=== PATIENT | female | born 1980 | race African-American/Black ===

== ENCOUNTER 2018-05-12 13:47 | Inpatient (IN) | payer BC ==
[2018-05-12 14:36] VITALS: BMI 42.7
[2018-05-12 15:09] LABS: BASO % 0.1 % (0-2.0); HEMATOCRIT 35.9 % (32.4-45.2); HEMOGLOBIN 12.4 GM/dL (10.7-15.3); LYMPH % 8.6 % (8-40); MCHC 34.6 g/dl (32.0-36.0); MEAN CELL VOLUME 95.6 fl (80-96); MONO % 9.1 % (3.8-10.2); NEUT % 82.2 % (42.8-82.8); PLATELET COUNT 149 K/MM3 (134-434); RBC 3.75 M/mm3 (3.60-5.2); RDW 12.6 % (11.6-15.6); WHITE BLOOD COUNT 11.7 K/mm3 (4.0-10.0)
[2018-05-12] MEDS ORDERED: DEXTROSE 5%-LACTATED RINGERS 1,000 ML IV SCH ×2 (15:15→21:00)
[2018-05-12 15:34] LABS: ANION GAP 11 MMOL/L (8-16); BLOOD UREA NITROGEN 11 mg/dL (7-18); CALCIUM 8.7 mg/dL (8.5-10.1); CHLORIDE 101 mmol/L (98-107); CO2 21 mmol/L (21-32); CREATININE 0.8 mg/dL (0.55-1.3); GLUCOSE,RANDOM 102 mg/dL (74-106); SODIUM 133 mmol/L (136-145)
[2018-05-12 15:39] LABS: INR 0.99 (0.83-1.09); PROTHROMBIN TIME (PATIENT) 11.7 SEC (9.7-13.0); RPR NONREACTIVE (NONREACTIVE)
[2018-05-12] MEDS ORDERED: FENTANYL/BUPIVACAINE/NS/PF - PCEA - 50 ML DISP.SYRIN EP ONE (16:01)
--- NOTE | 2018-05-12 16:15 | HP ---
Past Medical History - Primary Care Physician PCP:: Kalpana Beasley - Admission Chief Complaint: 37yo P0 @39.6 wks. with contructions, no LOF, no VB, + FM History of Present Illness: 1. h/o Gastric sleeve with 40lb weight loss 2. Spontaneous 3. GBS neg no need for prophylaxis 4. Obese GCT is normal 5. 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 Weeks Gestation by Dates: 39.6 ...EDC by Dates: 05/13/18 Additional Medical History: Anovulation, PCOS, Obesity. Denied h/o STDs - Past Surgical History Hx Myomectomy: No Hx Transabdominal Cerclage: No Additional Surgical History: 2017 Gastric sleeve - Smoking History Smoking history: Smoker current status UNK Have you smoked in the past 12 months: No - Alcohol/Substance Use Hx Alcohol Use: No History of Substance Use: reports: None - Social History Usual Living Arrangement: Yes: With Spouse Home Medications - Allergies Allergies/Adverse Reactions: Allergies Allergy/AdvReac Type Severity Reaction Status Date / Time No Known Allergies Allergy Verified 05/12/18 14:41 - Home Medications Home Medications: Ambulatory Orders Ferrous Sulfate [Feosol] 325 mg PO BID 05/11/18 Pnv No.95/Ferrous Fum/Folic AC [ Vitamin Tablet] 1 each PO DAILY Family Disease History - Family Disease History Family History: Denies Review of Systems - Review of Systems Constitutional: reports: No Symptoms Eyes: reports: No Symptoms HENT: reports: No Symptoms Neck: reports: No Symptoms Cardiovascular: reports: No Symptoms Respiratory: reports: No Symptoms Gastrointestinal: reports: No Symptoms Genitourinary: reports: No Symptoms Breasts: reports: No Symptoms Reported Musculoskeletal: reports: No Symptoms Integumentary: reports: No Symptoms Neurological: reports: No Symptoms Endocrine: reports: No Symptoms Hematology/Lymphatic: reports: No Symptoms Psychiatric: reports: No Symptoms Physical Exam - Maternity Vital Signs: Vital Signs Temperature 97.8 F 05/12/18 13:47 Pulse Rate 74 05/12/18 13:47 Respiratory Rate 20 05/12/18 13:47 Blood Pressure 129/78 05/12/18 13:47 O2 Sat by Pulse Oximetry (%) Constitutional: Yes: Well Nourished, No Distress, Calm Eyes: Yes: WNL, Occular Prosthesis Neck: Yes: WNL, Supple, Trachea Midline Cardiovascular: Yes: WNL, Regular Rate and Rhythm Lungs: Clear to auscultation Breast(s): Yes: WNL - Abdominal Exam/OB Fundal Height: 40 (EFW 8lb) Number of Fetuses: Single Presentation: Vertex Contractions: Yes Regularity: Regular Intensity: Moderate Monitor Mode: External Heart Rate (range): 145 Heart Rate Location: Midline Category: I Accelerations: Uniform Decelerations: Variable (ocassional, exellent verriability) - Vaginal Exam/OB Vaginal Bleediing: No Speculum Exam: No Dilatation (cm): 7-8cm Effacement (%): 90 Amniotic Membrane Status: Intact Presentation: Vertex/Position Station: 0 - Physical Exam Musculoskeletal: Yes: WNL Extremities: Yes: WNL Edema: No Integumentary: Yes: WNL Deep Tendon Reflex Grade: Normal +2 ...Motor Strength: WNL Psychiatric: Yes: WNL, Alert, Oriented - Labs Lab Results: Apos/RI/NR/HBsAg neg/HIV neg/GCT 90 CBC, BMP 05/12/18 14:40 05/12/18 14:40 Assessment/Plan 37yo P0 @ 39.6wks in active labor Admit to L&D NPO, Admit labs well being is reassuring occasional mild variables with excellent variability in between Patient agreed to an epidural anesthesia will AROM once comfortable for further assessment of well being LGA, but gynecoyd pelvis and excellent progress of labor
[2018-05-12] MEDS ORDERED: ELECTROLYTE-148 SOLN 1,000 ML IV SCH (16:30)
[2018-05-12] MEDS ORDERED: ELECTROLYTE-148 SOLN 1,000 ML IV ONE (16:30)
--- NOTE | 2018-05-12 17:26 | PN ---
Progress Note, Labor Vaginal Exam #1 Labor Exam Date: 05/12/18 Labor Exam Time: 17:15 Heart Rate (range): 150,s exellent varriability, occasional varriable Dilatation: 8-9cm Effacement (%): 90 Amniotic Membrane Status: Bulging (AROM - thick particulate meconium) Presentation: Vertex/Position Station: 0 Remarks: Category 2 FHR with reassuring features Mother comfortable after epidural NICU attending presence @ delivery requested continue monitoring progress of labor
[2018-05-12] MEDS ORDERED: NALOXONE HCL 0.4 MG/ML VIAL IVPUSH PRN (17:28)
[2018-05-12] MEDS ORDERED: FENTANYL/BUPIVACAINE/NS/PF - PCEA - 50 ML DISP.SYRIN EP SCH (17:30)
[2018-05-12] MEDS ORDERED: OXYTOCIN 30 UNITS in 0.9% NS 30 UNIT/500 ML INFUS.BAG IVPB ONE (18:03)
[2018-05-12] MEDS ORDERED: OXYTOCIN 30 UNITS in 0.9% NS 30 UNIT/500 ML INFUS.BAG IVPB SCH (18:15)
--- NOTE | 2018-05-12 18:58 | PN ---
Progress Note, Labor Vaginal Exam #2 Labor Exam Date: 05/12/18 Labor Exam Time: 18:40 Heart Rate (range): 160" Recurrent varriables on/off good varriability Dilatation: 5-6cm Effacement (%): 80% Amniotic Membrane Status: Ruptured Presentation: Vertex/Position Station: 0 Remarks: Cervix swallen Category 2 FHR Likely CPD with not favorable FHR - EFW 8lb and thick particulate meconium Anesthesia, Neonatology and medical record assistant informed Pitocin off O2 by face mask LL decubitous position Patient consented to Primary c/section all questions answered
[2018-05-12] MEDS ORDERED: OXYTOCIN 10 UNITS/ML VIAL ONE ×2 (19:44→20:42)
[2018-05-12] MEDS: OXYTOCIN 20 UNITS in 0.9% NS 20 UNIT/1,000 ML INFUS.BAG IV SCH (19:45)
[2018-05-12] MEDS ORDERED: KETOROLAC TROMETHAMINE 30 MG/1 ML VIAL ONE (19:50)
[2018-05-12 20:19] LABS: ARTERIAL BLOOD GAS BASE EXCESS -2.5 meq/l (-2-2); ARTERIAL BLOOD GAS PCO2 44.4 mmHg (35-45); ARTERIAL BLOOD GAS pH 7.33 (7.35-7.45)
[2018-05-12 20:22] LABS: VENOUS PC02 42.4 mmHg (38-52); VENOUS PH 7.35 (7.32-7.42); VENOUS PO2 31.9 mmHg (28-48)
[2018-05-12 20:26] LABS: ALLENS TEST POSITIVE
[2018-05-12 20:30] LABS: ARTERIAL BLD GAS O2 SATURATION 38.6 % (90-98.9); ARTERIAL BLOOD GAS PO2 20.7 mmHg (80-100)
--- NOTE | 2018-05-12 20:48 | OP ---
Operative Note - Note: Operative Date: 05/12/18 Pre-Operative Diagnosis: 37yo P 0 @ 39.6weeks with CPD, Category 2 FHR remote from delivery, thick, particulate meconium Operation: Primary c/section Findings: 1. normal bilateral tubes and ovaries 2. 5cm anterior fibroid Post-Operative Diagnosis: Same as Pre-op Surgeon: Kalpana Beasley Accounting Auditor: Jimmy Murray Anesthesiologist/KNITTING MACHINE TENDER: Victorina Castillo Anesthesia: Epidural Specimens Removed: 1. viable male APGARs 9/9, 6.8lb. 2. Placenta Estimated Blood Loss (mls): 800 Drains, Volume Out (mls): 100 Fluid Volume Replaced (mls): 1,000 Operative Report Dictated: Yes
[2018-05-12] MEDS ORDERED: WITCH HAZEL 50% (TUCKS) 40 PAD/JAR PAD TP PRN (20:52)
[2018-05-12] MEDS ORDERED: oxyCODONE HCL 5 MG TABLET PO PRN (20:52)
[2018-05-12] MEDS ORDERED: BENZOCAINE 20% 57 GM BOTTLE TP PRN (20:52)
[2018-05-12] MEDS ORDERED: METHYLERGONOVINE MALEATE 0.2 MG/1 ML AMP IM PRN ×2 (20:52)
[2018-05-12] MEDS ORDERED: IBUPROFEN 800 MG/8 ML IJ IVPB PRN (20:52)
[2018-05-12] MEDS ORDERED: diphenhydrAMINE HCL 25 MG CAPSULE (FP) PO PRN (20:52)
[2018-05-12] MEDS ORDERED: IBUPROFEN 600 MG TABLET (FP) PO PRN (20:52)
[2018-05-12] MEDS ORDERED: BENZOCAINE 28 GM HEMORRHOIDAL OINTMENT PR PRN (20:52)
--- NOTE | 2018-05-12 20:52 | PN ---
Delivery - Delivery Section: Primary Type of Anesthesia: Epidural Episiotomy/Laceration: None EBL (cc): 800 Delivery, Single - Stages of Labor Placenta: Yes: Expressed - Condition of Infant Auto Glass Installer/Physical Instructor Present: Yes Name: Swati Mckeon Gender: Male Weight: 6 lb 8 oz Position: OP - 1 Minute Total Score: 9 5 Minutes Total Score: 9 - [place] Feeding Plan Initial Plan: Exclusive throughout hospitalization
--- NOTE | 2018-05-12 23:42 | OP ---
DATE OF OPERATION: 05/12/2018 PREOPERATIVE DIAGNOSIS: A 37-year-old para 0 at 39 and 6 weeks with cephalopelvic disproportion, category 2 heart tracing, remote from delivery, thick particulate meconium. POSTOPERATIVE DIAGNOSIS: A 37-year-old para 0 at 39 and 6 weeks with cephalopelvic disproportion, category 2 heart tracing, remote from delivery, thick particulate meconium. OPERATION: Primary section. FINDINGS: Normal bilateral tubes and ovaries, 5-cm anterior fibroid, viable male with Apgars 9 and 9, 6 pounds 2 ounces. Full term placenta. SURGEON: Tremaine Beasley MD PEDIATRIC NP: LELAND Ledezma ANESTHESIOLOGIST: Victorina Castillo MD ANESTHESIA: Epidural. DESCRIPTION OF OPERATIVE PROCEDURE: After signing informed consent, the patient was brought to the operating room where she was placed in dorsal supine position with left lateral tilt. Abdomen was prepped and draped in the sterile fashion. Pfannenstiel skin incision was made with scalpel and carried down to the level of fascia with Bovie cautery. Fascia was incised in the midline and extended bilaterally with Bovie cautery. The fascia was dissected superiorly and inferiorly with Bovie cautery as well. Muscle split in the midline. Peritoneum entered bluntly without any difficulty and dissected superiorly, inferiorly and laterally. Bladder retracted with the lower edge of the [place]. Bilateral gutters were packed with lap sponges. The vesicouterine peritoneum tented with pickups and dissected with Metzenbaum scissors bilaterally. Bladder flap created and bladder retracted with the lower edge of the [place]. Uterine lower segment transverse incision was made with a scalpel and dissected bilaterally with bandage scissors. 's head was delivered atraumatically in OP presentation. was covered with meconium. Cord was clamped and cut. was rapidly given to awaiting electric gas appliances demonstrator, Dr. Lennox Mckeon. Placenta was expressed. Uterus was cleared of clots and debris and repaired inside the abdomen with 0 Biosyn in 2 layers, second one imbricating. Excellent hemostasis achieved. Abdomen was irrigated. Bilateral normal tubes and ovaries noted. Anterior fundal fibroid was noted, as described above. The peritoneum was repaired in running fashion. Muscle was reapproximated in the midline with 0 Biosyn. The fascia was repaired with 0 Vicryl in running fashion from end-to-end. The subcuticular space was irrigated, made hemostatic with Bovie cautery, and subcuticular space closed with 2-0 Vicryl to reapproximate the subcutaneous fat. The skin was closed with 4-0 Biosyn V-Loc suture in running fashion. Excellent hemostasis was noted throughout. Instrument and sponge counts were correct x2. Estimated blood loss was 800 mL. Patient put out 100 mL of urine and received 1000 mL of fluids. Tolerated the procedure well and was brought to the recovery room in stable condition. TREMAINE BEASLEY M.D. [id number]
[2018-05-13] MEDS ORDERED: ONDANSETRON 4 MG/2 ML VIAL IVPUSH PRN (00:17)
[2018-05-13] MEDS: CEFAZOLIN 1 GM/D5W 1 GM/50 ML BAG IVPB SCH ×2 (01:30→11:05)
[2018-05-13] MEDS: OXYTOCIN 20 UNITS in 0.9% NS 20 UNIT/1,000 ML INFUS.BAG IV SCH ×2 (01:30→12:39)
[2018-05-13 06:56] LABS: BASO % 0.1 % (0-2.0); HEMOGLOBIN 10.3 GM/dL (10.7-15.3); LYMPH % 6.3 % (8-40); MCH 32.8 pg (25.7-33.7); MCHC 34.2 g/dl (32.0-36.0); MEAN PLT VOLUME 8.7 fl (7.5-11.1); MONO % 9.8 % (3.8-10.2); NEUT % 83.8 % (42.8-82.8); PLATELET COUNT 142 K/MM3 (134-434); RBC 3.13 M/mm3 (3.60-5.2); RDW 12.7 % (11.6-15.6); WHITE BLOOD COUNT 14.5 K/mm3 (4.0-10.0)
--- NOTE | 2018-05-13 09:06 | PN ---
Progress Note (short form) - Note Progress Note: Anesthesiology Post-op 37 y.o. woman POD#1 s/p C/S under epidural anesthesia. She is resting comfortably in bed in NAD. Pain is under control. She denies h/a and is able to move her legs without difficulty. VSS. 37 y.o. woman with stavle post-operative course. Continue management as per primary team.
--- NOTE | 2018-05-13 10:02 | PN ---
Post Progress Note - Subjective Subjective: 37yo P1 now s/p Primary c/s no complain some nausea pain well controlled no flatus, no BM Post Day: 1 Type of Delivery: Primary C/S Vital Signs: Vital Signs Temperature 98.6 F 05/13/18 06:00 Pulse Rate 88 05/13/18 06:00 Respiratory Rate 18 05/13/18 06:00 Blood Pressure 113/65 05/13/18 06:00 O2 Sat by Pulse Oximetry (%) 97 05/12/18 21:45 Breast Exam: Yes: Soft Uterus: Yes: Fundus Firm Incision: Yes: Dressing dry and intact Abdomen/GI: Yes: Abdomen soft Lochia: Yes: Rubra Lochia, amount: Small Extremities: Yes: Calves non-tender Perineum: Yes: Intact Activity: Ambulating - Labs Labs: CBC WBC 14.5 K/mm3 (4.0-10.0) H 05/13/18 06:10 RBC 3.13 M/mm3 (3.60-5.2) L 05/13/18 06:10 Hgb 10.3 GM/dL (10.7-15.3) L 05/13/18 06:10 Hct 30.0 % (32.4-45.2) L D 05/13/18 06:10 MCV 96.0 fl (80-96) 05/13/18 06:10 MCH 32.8 pg (25.7-33.7) 05/13/18 06:10 MCHC 34.2 g/dl (32.0-36.0) 05/13/18 06:10 RDW 12.7 % (11.6-15.6) 05/13/18 06:10 Plt Count 142 K/MM3 (134-434) 05/13/18 06:10 MPV 8.7 fl (7.5-11.1) 05/13/18 06:10 Absolute Neuts (auto) 12.1 K/mm3 (1.5-8.0) H 05/13/18 06:10 Neutrophils % 83.8 % (42.8-82.8) H 05/13/18 06:10 Lymphocytes % 6.3 % (8-40) L D 05/13/18 06:10 Monocytes % 9.8 % (3.8-10.2) 05/13/18 06:10 Eosinophils % 0.0 % (0-4.5) 05/13/18 06:10 Basophils % 0.1 % (0-2.0) 05/13/18 06:10 Nucleated RBC % 0 % (0-0) 05/13/18 06:10 Assessment/Plan 37yo P1 s/p Primary LST c/s POD # 1 VSS, Afebrile doing well [place] ambulation and oral hydration Rh pos - no need for RhoGam Baby boy for circumcision
[2018-05-13] MEDS: ENOXAPARIN NA (PORCINE) 40 MG/0.4 ML DISP.SYRIN SQ SCH (10:53)
[2018-05-13] MEDS ORDERED: ACETAMINOPHEN 325 MG TABLET (FP) ONE (13:21)
[2018-05-13] MEDS: IBUPROFEN 600 MG TABLET (FP) PO PRN (13:25)
[2018-05-13] MEDS: SIMETHICONE 80 MG TAB.CHEW (FP) PO PRN (13:26)
[2018-05-13] MEDS ORDERED: BISACODYL 10 MG SUPP.RECT RC PRN ×2 (20:52)
[2018-05-14] MEDS: IBUPROFEN 600 MG TABLET (FP) PO PRN (02:30)
[2018-05-14] MEDS: SIMETHICONE 80 MG TAB.CHEW (FP) PO PRN ×3 (02:30→18:30)
[2018-05-14] MEDS: oxyCODONE HCL 5 MG TABLET PO PRN ×3 (02:31→18:30)
--- NOTE | 2018-05-14 07:01 | PN ---
Post Progress Note - Subjective Subjective: No acute complains voiding, minimal flatus no nausea, ambulating Post Day: 2 Type of Delivery: Primary C/S Vital Signs: Vital Signs Temperature 97.4 F L 05/13/18 21:18 Pulse Rate 70 05/13/18 21:18 Respiratory Rate 18 05/13/18 21:18 Blood Pressure 107/71 05/13/18 21:18 O2 Sat by Pulse Oximetry (%) 97 05/12/18 21:45 Breast Exam: Yes: Soft Uterus: Yes: Fundus Firm, Non-tender Incision: Yes: Sutures intact Abdomen/GI: Yes: Abdomen soft Lochia: Yes: Rubra Lochia, amount: Small Extremities: Yes: Calves non-tender Perineum: Yes: Intact Activity: Ambulating - Labs Labs: CBC WBC 14.5 K/mm3 (4.0-10.0) H 05/13/18 06:10 RBC 3.13 M/mm3 (3.60-5.2) L 05/13/18 06:10 Hgb 10.3 GM/dL (10.7-15.3) L 05/13/18 06:10 Hct 30.0 % (32.4-45.2) L D 05/13/18 06:10 MCV 96.0 fl (80-96) 05/13/18 06:10 MCH 32.8 pg (25.7-33.7) 05/13/18 06:10 MCHC 34.2 g/dl (32.0-36.0) 05/13/18 06:10 RDW 12.7 % (11.6-15.6) 05/13/18 06:10 Plt Count 142 K/MM3 (134-434) 05/13/18 06:10 MPV 8.7 fl (7.5-11.1) 05/13/18 06:10 Absolute Neuts (auto) 12.1 K/mm3 (1.5-8.0) H 05/13/18 06:10 Neutrophils % 83.8 % (42.8-82.8) H 05/13/18 06:10 Lymphocytes % 6.3 % (8-40) L D 05/13/18 06:10 Monocytes % 9.8 % (3.8-10.2) 05/13/18 06:10 Eosinophils % 0.0 % (0-4.5) 05/13/18 06:10 Basophils % 0.1 % (0-2.0) 05/13/18 06:10 Nucleated RBC % 0 % (0-0) 05/13/18 06:10 Assessment/Plan 37yo P1 s/p Primary LST c/s POD # 2 VSS, Afebrile doing well [place] ambulation and oral hydration Rh pos - no need for RhoGam Baby boy s/p circumcision Patient suffers from Keloid scaring consented for Triamcinolone 400mg -subcutaneous 10ml injection around entire incision, she tolerated procedure well
[2018-05-14] MEDS ORDERED: TRIAMCINOLONE ACETONIDE 40 MG/ML 10 ML VIAL SQ ONE (09:00)
[2018-05-14] MEDS: ENOXAPARIN NA (PORCINE) 40 MG/0.4 ML DISP.SYRIN SQ SCH (10:03)
[2018-05-14] MEDS: ACETAMINOPHEN 325 MG TABLET (FP) PO PRN ×2 (11:13→18:31)
--- NOTE | 2018-05-14 20:46 | DS ---
Physical Exam-CHILDREN'S ENTERTAINER Vital Signs: Vital Signs Temperature 98.8 F 05/14/18 08:43 Pulse Rate 75 05/14/18 08:43 Respiratory Rate 20 05/14/18 08:43 Blood Pressure 97/56 L 05/14/18 08:43 O2 Sat by Pulse Oximetry (%) 97 05/12/18 21:45 Constitutional: Yes: Well Nourished, No Distress, Calm Eyes: Yes: WNL, Conjunctiva Clear HENT: Yes: WNL, Atraumatic, Normocephalic Neck: Yes: WNL, Supple, Trachea Midline Cardiovascular: Yes: WNL, Regular Rate and Rhythm Respiratory: Yes: WNL, Regular, CTA Bilaterally Gastrointestinal: Yes: WNL, Normal Bowel Sounds, Soft Renal/: Yes: WNL Pelvis: Yes: WNL External Genitalia: Yes: Normal ....Post : Yes: Uterus firm, Uterus non-tender Breast(s): Yes: WNL Musculoskeletal: Yes: WNL Extremities: Yes: WNL Edema: No Integumentary: Yes: WNL Wound/Incision: Yes: Clean/Dry, Well Approximated Neurological: Yes: WNL, Alert, Oriented ...Motor Strength: WNL Psychiatric: Yes: WNL, Alert, Oriented Labs: CBC, BMP 05/13/18 06:10 05/12/18 14:40 Delivery - Delivery Section: Primary Type of Anesthesia: Epidural Episiotomy/Laceration: None EBL (cc): 800 Delivery, Single - Stages of Labor Date 1st Stage Initiatied: 05/12/18 Time 1st Stage Initiated: 16:55 Date of Delivery: 05/12/18 Time of Delivery: 19:44 Time Placenta Delivered: 19:45 Placenta: Yes: Expressed - Condition of Infant Zipper Setter Chainstitch/Hoop Expander Present: Yes Name: Swati Mckeon Gender: Male Weight: 6 lb 8 oz Position: OP Total Hours ROM (Hrs/Mins): 2hr30m - 1 Minute Total Score: 9 5 Minutes Total Score: 9 - [place] Feeding Plan Initial Plan: Exclusive throughout hospitalization Discharge Summary Reason For Visit: LABOR Non reassuring heart rate remote from delivery Procedures: Principal: Primary c/section Other Procedures: Penile circumcision. Incision steroid injection Hospital Course: Unremarkable Condition: Good - Instructions Diet, Activity, Other Instructions: Physical activity Resume your normal everyday activity as tolerated no heavy lifting or exercise until seen by your surgeon. You may walk unlimited carlos alberto of and climb stairs. You may resume driving the car when you feel safe and comfortable behind the wheel. No sexual activity as instructed. Wound care If you have a bandage, leave it on, and keep dry for 48-72 hours. After that time discard the outer bandage. If they are tapes on the skin under the out of bandage leave them in place. They will peel off in the next 7 to 10 days. Do Not Peel them off. You may shower the day after surgery. If there are tapes present on the skin, you may shower over them. Diet There are no dietary restrictions. Eat healthy, high-fiber foods. Drink 6 to 8 glasses of liquid each day. This will assist in keeping your bowels are regular. Pain management You may take Tylenol or acetaminophen or Ibuprofen (for example, Motrin, Advil etc.) from my pain prescription medication is ordered should be taken as prescribed for moderate to severe pain. Call MD for any of the following: Severe pain not relieved by medication Fever of 101 or higher Excessive bleeding or drainage on dressing Inability to urinate Disposition: HOME - Home Medications Comprehensive Discharge Medication List: Ambulatory Orders Ferrous Sulfate [Feosol] 325 mg PO BID 05/11/18 Pnv No.95/Ferrous Fum/Folic AC [ Vitamin Tablet] 1 each PO DAILY
[2018-05-14] MEDS ORDERED: SENNOSIDES/DOCUSATE COMBO (SENNA PLUS) TABLET (UD) PO PRN (22:00)
[2018-05-15] MEDS: ACETAMINOPHEN 325 MG TABLET (FP) PO PRN ×2 (01:09→18:09)
[2018-05-15] MEDS: SIMETHICONE 80 MG TAB.CHEW (FP) PO PRN ×2 (01:09→18:09)
[2018-05-15] MEDS: oxyCODONE HCL 5 MG TABLET PO PRN (01:10)
[2018-05-15 07:34] LABS: BASO % 0.2 % (0-2.0); EOS % 0.1 % (0-4.5); HEMATOCRIT 26.2 % (32.4-45.2); HEMOGLOBIN 9.2 GM/dL (10.7-15.3); LYMPH % 10.3 % (8-40); MCH 33.9 pg (25.7-33.7); MCHC 35.1 g/dl (32.0-36.0); MEAN CELL VOLUME 96.4 fl (80-96); MEAN PLT VOLUME 9.5 fl (7.5-11.1); MONO % 10.6 % (3.8-10.2); NEUT % 78.8 % (42.8-82.8); PLATELET COUNT 151 K/MM3 (134-434); RBC 2.71 M/mm3 (3.60-5.2); RDW 12.6 % (11.6-15.6); WHITE BLOOD COUNT 8.6 K/mm3 (4.0-10.0)
--- NOTE | 2018-05-15 08:21 | PN ---
Post Progress Note - Subjective Subjective: Patient without acute complaints. Reports tolerating oral intake without nausea or vomiting. Ambulating without dizziness. Denies fevers or chills. Pain well controlled with oral pain medication. Post Day: 3 Type of Delivery: Primary C/S Vital Signs: Vital Signs Temperature 98.7 F 05/15/18 06:00 Pulse Rate 81 05/14/18 22:00 Respiratory Rate 18 05/14/18 22:00 Blood Pressure 135/71 05/14/18 22:00 O2 Sat by Pulse Oximetry (%) 97 05/12/18 21:45 Breast Exam: Yes: Soft Uterus: Yes: Fundus Firm, Fundus below umbilicus, Non-tender Incision: Yes: Sutures intact Abdomen/GI: Yes: Abdomen soft, Passing flatus, Tolerating PO Lochia: Yes: Rubra Lochia, amount: Small Extremities: Yes: Calves non-tender Perineum: Yes: Intact Activity: Ambulating - Labs Labs: CBC WBC 14.5 K/mm3 (4.0-10.0) H 05/13/18 06:10 RBC 3.13 M/mm3 (3.60-5.2) L 05/13/18 06:10 Hgb 10.3 GM/dL (10.7-15.3) L 05/13/18 06:10 Hct 30.0 % (32.4-45.2) L D 05/13/18 06:10 MCV 96.0 fl (80-96) 05/13/18 06:10 MCH 32.8 pg (25.7-33.7) 05/13/18 06:10 MCHC 34.2 g/dl (32.0-36.0) 05/13/18 06:10 RDW 12.7 % (11.6-15.6) 05/13/18 06:10 Plt Count 142 K/MM3 (134-434) 05/13/18 06:10 MPV 8.7 fl (7.5-11.1) 05/13/18 06:10 Absolute Neuts (auto) 12.1 K/mm3 (1.5-8.0) H 05/13/18 06:10 Neutrophils % 83.8 % (42.8-82.8) H 05/13/18 06:10 Lymphocytes % 6.3 % (8-40) L D 05/13/18 06:10 Monocytes % 9.8 % (3.8-10.2) 05/13/18 06:10 Eosinophils % 0.0 % (0-4.5) 05/13/18 06:10 Basophils % 0.1 % (0-2.0) 05/13/18 06:10 Nucleated RBC % 0 % (0-0) 05/13/18 06:10 Assessment/Plan 37yo P1 s/p primary LT C/S, doing well stable, afebrile. The pt is asymptomatic for s/sxs of anemia. care instructions reviewed. Continue routine postop care. Ambulation encouraged.
[2018-05-15] MEDS: ENOXAPARIN NA (PORCINE) 40 MG/0.4 ML DISP.SYRIN SQ SCH (11:12)
[2018-05-15] MEDS: IBUPROFEN 600 MG TABLET (FP) PO PRN (18:09)
[2018-05-16 08:06] VITALS: BP 125/70; PULSE 76; TEMP 98.5
[2018-05-16] MEDS: ENOXAPARIN NA (PORCINE) 40 MG/0.4 ML DISP.SYRIN SQ SCH (09:11)
--- NOTE | 2018-05-16 09:46 | PN ---
Post Progress Note - Subjective Subjective: Patient without acute complaints. Reports tolerating oral intake without nausea or vomiting. Ambulating without dizziness. Denies fevers or chills. Pain well controlled with oral pain medication. without difficulty. Passing flatus. Post Day: 4 Type of Delivery: Primary C/S Vital Signs: Vital Signs Temperature 98.5 F 05/16/18 07:30 Pulse Rate 76 05/16/18 07:30 Respiratory Rate 18 05/16/18 07:30 Blood Pressure 125/70 05/16/18 07:30 O2 Sat by Pulse Oximetry (%) 97 05/12/18 21:45 Breast Exam: Yes: Engorged Uterus: Yes: Fundus Firm, Fundus below umbilicus Incision: Yes: Sutures intact. No: Redness, Oozing Abdomen/GI: Yes: Abdomen soft, Tender (mild incisional), Passing flatus, Tolerating PO. No: Abdominal Distention Lochia: Yes: Serosa Lochia, amount: Small Extremities: Yes: Calves non-tender, Edema (trace) Activity: Ambulating - Labs Labs: CBC WBC 8.6 K/mm3 (4.0-10.0) 05/15/18 06:35 RBC 2.71 M/mm3 (3.60-5.2) L 05/15/18 06:35 Hgb 9.2 GM/dL (10.7-15.3) L 05/15/18 06:35 Hct 26.2 % (32.4-45.2) L 05/15/18 06:35 MCV 96.4 fl (80-96) H 05/15/18 06:35 MCH 33.9 pg (25.7-33.7) H 05/15/18 06:35 MCHC 35.1 g/dl (32.0-36.0) 05/15/18 06:35 RDW 12.6 % (11.6-15.6) 05/15/18 06:35 Plt Count 151 K/MM3 (134-434) 05/15/18 06:35 MPV 9.5 fl (7.5-11.1) 05/15/18 06:35 Absolute Neuts (auto) 6.8 K/mm3 (1.5-8.0) 05/15/18 06:35 Neutrophils % 78.8 % (42.8-82.8) 05/15/18 06:35 Lymphocytes % 10.3 % (8-40) D 05/15/18 06:35 Monocytes % 10.6 % (3.8-10.2) H 05/15/18 06:35 Eosinophils % 0.1 % (0-4.5) D 05/15/18 06:35 Basophils % 0.2 % (0-2.0) 05/15/18 06:35 Nucleated RBC % 0 % (0-0) 05/15/18 06:35 Assessment/Plan 37 yo POD #4 s/p primary CD, afebrile, vital signs stable, doing well 1. Patient stable for discharge home today. 2. Patient encouraged to contact MD for: - Severe pain not controlled by oral pain medication - Fevers or chills - Nausea or vomiting, intolerance of oral intake - Incision redness, tenderness or discharge 3. Patient to follow up in office in 1-2 weeks for incision check, 4-6 weeks for visit
--- NOTE | 2018-05-27 12:10 | PATH ---
Surgical Pathology Report Patient Name: COREY WALTON [facility]. Rec. #: [id number] /Age/Gender: 1980 (Age: 37) / F Account: [id number] [facility] OBS/LINE UP EXAMINER Taken: 05/12/2018 Received: 05/13/2018 Reported: 05/27/2018 Physicians: Kalpana Beasley M.D. Specimen(s) Received PLACENTA Clinical History , 39.6 weeks' gestation due to Category 2 tracing, CPD Final Diagnosis PLACENTA, DELIVERY: FOCALLY DISRUPTED THIRD TRIMESTER PLACENTA WITH THREE VESSEL UMBILICAL CORD AND UNREMARKABLE PLACENTAL MEMBRANES. Electronically Signed Dhruv Etienne M.D. Gross Description The specimen is received fresh labeled placenta and is a 443 gram, 16.0 x 14.5 x 2.8 cm. placenta with attached membranes and umbilical cord. The attached membranes are amin, translucent with focal opacities and insert marginally. The umbilical cord measures 11 cm. in length and averages 1.1 cm. in diameter. The cord inserts eccentrically, 1 cm. to the nearest margin. No true knots or strictures are identified. Cut surface of the umbilical cord reveals 3 vessels. The surface is garcía-blue with minimal fibrin deposition and appropriate caliber vessels. The maternal surface is red-brown with focal defects. Sectioning reveals red-brown, spongy parenchyma. No lesions are identified. Monotype Machinist sections are submitted in three cassettes as follows: 1- membrane rolls and umbilical cord; 2-3- full thickness sections of placenta. 05/24/2018 [facility]05/24/2018
== END 2018-05-16 11:55 | disposition home or self-care (01) | DRG 788 ==
LOC: JLDR 13:47 → J3W 22:50
PROVIDERS: ADMIT Obstetrics & Gynecology; ATTEND Obstetrics & Gynecology
PROC: 10D00Z1 Extraction of Products of Conception, Low, Open Approach (ICD-10-PCS; principal; 2018-05-12)
DX: O33.9 Maternal care for disproportion, unspecified (principal); O99.214 Obesity complicating childbirth; E66.9 Obesity, unspecified; O76 Abnormality in fetal heart rate and rhythm complicating labor and delivery; O77.0 Labor and delivery complicated by meconium in amniotic fluid; O34.13 Maternal care for benign tumor of corpus uteri, third trimester; D25.9 Leiomyoma of uterus, unspecified; O99.02 Anemia complicating childbirth; D64.9 Anemia, unspecified; Z3A.39 39 weeks gestation of pregnancy; Z37.0 Single live birth
CPT/HCPCS: 36415; 36600; 71046-TC-FY; 80048; 82803; 85025; 85610; 85730; 86593; 86850; 86900; 86901; 87389; 88307-TC

== ENCOUNTER → 2023-07-03 | Day surgery (SDC) | payer BC ==
[2023-07-02 16:11] VITALS: BMI 45.3
[~2023-07-03] MED LIST: DEXAMETHASONE SOD PHOSPHATE 4 MG/1 ML VIAL ONE; ELECTROLYTE-148 SOLN 1,000 ML IV SCH; FENTANYL CITRATE/PF 50 MCG/ML VIAL ONE; IBUPROFEN 400 MG TABLET (FP) PO ONE; IBUPROFEN 600 MG TABLET (FP) PO PRN; IBUPROFEN 800 MG/8 ML IJ IVPB PRN; KETOROLAC TROMETHAMINE 30 MG/1 ML VIAL ONE; LACTATED RINGERS SOLUTION 1,000 ML IV SCH; MIDAZOLAM HCL 2 MG/2 ML SINGLE DOSE VIAL ONE; ONDANSETRON 4 MG/2 ML VIAL IVPUSH PRN; ONDANSETRON 4 MG/2 ML VIAL ONE; PROPOFOL 20 ML ONE; oxyCODONE HCL 5 MG TABLET PO PRN
[2023-07-03 11:00] VITALS: RESP 16
[2023-07-03] MEDS: IBUPROFEN 400 MG TABLET (FP) PO ONE (11:38)
[2023-07-03 11:43] VITALS: BP 149/85; PULSE 78; TEMP 96.9
== END | disposition home or self-care (01) ==
LOC: JASU-SURG 04:16
PROVIDERS: ATTEND Obstetrics & Gynecology
PROC: 10D17ZZ Extraction of Products of Conception, Retained, Via Natural or Artificial Opening (ICD-10-PCS; principal; 2023-07-03 09:00)
DX: O02.1 Missed abortion (principal)
CPT/HCPCS: 88305-TC; 94760

== ENCOUNTER 2024-09-08 10:37 | Emergency (ER) | payer BC ==
[2024-09-08 11:01] VITALS: BMI 44.9
[2024-09-08] MEDS ORDERED: MAGNESIUM SULFATE IN WATER 2 GM/50 ML IVPB IVPB ONE (13:33)
[2024-09-08] MEDS: MAGNESIUM SULFATE IN WATER 2 GM/50 ML IVPB IVPB ONE (14:06)
[2024-09-08 14:28] LABS: ABSOLUTE IMMATURE GRANULOCYTES 0.01 x10^3/uL (0.0-0.031); BASOPHILS # 0.04 x10^3/uL (0.01-0.08); EOSINOPHIL % 1.0 % (0.7-5.8); EOSINOPHILS # 0.06 x10^3/uL (0.04-0.36); MCHC 31.6 g/dl (32.2-35.5); MEAN CELL VOLUME 95.6 fl (79.4-94.8); MEAN PLT VOLUME 11.1 fl (9.4-12.3); MONOCYTE # 0.40 x10^3/uL (0.24-0.86); MONOCYTE % 6.8 % (4.7-12.5); RDW 12.1 % (12.2-17.1)
[2024-09-08 14:32] LABS: EPI CELLS 6 /uL (0-25.1); HYALINE CASTS 0 /uL (0-3.1); URINE APPEARANCE CLEAR; URINE BACTERIA 30 /uL (0-1359); URINE BILIRUBIN NEGATIVE (NEGATIVE); URINE COLOR YELLOW; URINE GLUCOSE (UA) NEGATIVE (NEGATIVE); URINE KETONE 1+ (NEGATIVE); URINE LEUK ESTERASE 1+ (NEGATIVE); URINE NITRITE NEGATIVE (NEGATIVE); URINE PROTEIN TRACE (NEGATIVE); URINE RBC 511 /uL (0-23.9); URINE UROBILINOGEN 0.2 mg/dL (0.2-1.0); URINE WBC 40 /uL (0-25.8)
[2024-09-08 14:36] LABS: INR 1.19 (0.83-1.09); PROTHROMBIN TIME (PATIENT) 13.1 SEC (9.7-13.0)
[2024-09-08 14:39] LABS: ACTIVATED PTT 38.4 SECONDS (25.2-36.5)
[2024-09-08 15:38] LABS: ALK PHOS 67.0 U/L (45-117); CO2 25.0 mmol/L (21-32); CREATININE 0.9 mg/dL (0.55-1.3); GLUCOSE,RANDOM 74.0 mg/dL (74-106); N-TERMINAL BNP 844.3 pg/ml (5-125); SGOT/AST 22.0 U/L (15-37); SGPT/ALT 26.0 U/L (13-61); TOT PROT 6.4 g/dl (6.4-8.2)
[2024-09-08 15:45] VITALS: BP 162/90; PULSE 67; RESP 20; TEMP 98.3
[2024-09-08] MEDS ORDERED: amLODIPine BESYLATE 5 MG TABLET (FP) ONE (16:05)
[2024-09-08] MEDS ORDERED: FUROSEMIDE 40 MG/4 ML INJECTABLE VIAL ONE (16:06)
[2024-09-08] MEDS: amLODIPine BESYLATE 5 MG TABLET (FP) PO ONE (16:15)
[2024-09-08] MEDS: FUROSEMIDE 40 MG/4 ML INJECTABLE VIAL IVPUSH ONE (16:15)
== END 2024-09-08 16:35 | disposition left against medical advice (07) ==
LOC: JER 10:37
PROC: 3E033GC Introduction of Other Therapeutic Substance into Peripheral Vein, Percutaneous Approach (ICD-10-PCS; principal; 2024-09-08)
PROC: 3E033GC Introduction of Other Therapeutic Substance into Peripheral Vein, Percutaneous Approach (ICD-10-PCS; 2024-09-08)
DX: R06.02 Shortness of breath (principal); R60.0 Localized edema; R05.9 Cough, unspecified
CPT/HCPCS: 36415; 71045-TC-FY; 80053; 81003; 82570; 83880; 84156; 84484; 85025; 85610; 85730; 86850; 86900; 86901; 87086; 87637-QW; 93005; 93010; 99285-25